=== PATIENT | male | born 1970 | race Caucasian/White ===

== ENCOUNTER 2018-02-11 08:00 | Emergency (ER) | payer OTHER ==
[2018-02-11 08:20] VITALS: BP 129/74
--- NOTE | 2018-02-11 08:49 | UC ---
Shoulder Pain HPI - HPI Summary HPI Summary: ABOUT 2 MONTHS OF RIGHT SHOULDER PAIN THAT OCCURS ONLY WITH CERTAIN MOVEMENTS. PATIENT HAS A RELATIVELY HIGH BED AND NO BEDSIDE TABLE SO REPEATEDLY REACHES TO THE FLOOR TO GET THINGS FROM THE FLOOR. HE DENIES ANY TRAUMA OR OTHER INJURY. NO SWELLING OR REDNESS OR RASH. NO CHEST PAIN OR SHORTNESS OF BREATH. NO PREVIOUS SHOULDER INJURY. - History of Current Complaint Chief Complaint: UCUpperExtremity Stated Complaint: SHOULD INJURY Time Seen by Provider: 02/11/18 08:21 Hx Obtained From: Patient Onset/Duration: Gradual Onset, Lasting Weeks, Still Present Severity Initially: Moderate Severity Currently: Moderate Location Of Pain: Is Discrete @ - RIGHT SHOULDER Pain Intensity: 7 Pain Scale Used: 0-10 Numeric Character: Sharp Aggravating Factor(s): Movement Alleviating Factor(s): Rest Associated Signs And Symptoms: Negative: Swelling, Redness, Weakness Related History: Dominant Hand Right - Allergies/Home Medications Allergies/Adverse Reactions: Allergies Allergy/AdvReac Type Severity Reaction Status Date / Time No Known Allergies Allergy Verified 02/11/18 08:20 Home Medications: Home Medications NK [No Home Medications Reported] 02/11/18 [History Confirmed 02/11/18] PMH/Surg Hx/FS Hx/Imm Hx Previously Healthy: Yes - Surgical History Surgical History: Yes Surgery Procedure, Year, and Place: testicular cyst removed 04/2013 - Family History Known Family History: Positive: Hypertension - Social History Alcohol Use: Rare Substance Use Type: None Smoking Status (MU): Never Smoked Tobacco Review of Systems Constitutional: Negative Skin: Negative Respiratory: Negative Cardiovascular: Negative Gastrointestinal: Negative Musculoskeletal: Arthralgia All Other Systems Reviewed And Are Negative: Yes Physical Exam Triage Information Reviewed: Yes Appearance: Well-Appearing, No Pain Distress, Well-Nourished Vital Signs: Initial Vital Signs Temp 97.7 F 02/11/18 08:12 Pulse 72 02/11/18 08:12 Resp 18 02/11/18 08:12 BP 129/74 02/11/18 08:12 Pulse Ox 99 02/11/18 08:12 Vital Signs Reviewed: Yes Eyes: Positive: Conjunctiva Clear ENT: Positive: Hearing grossly normal Neck: Positive: Supple Respiratory: Positive: No respiratory distress, No accessory muscle use Cardiovascular: Positive: Pulses Normal Abdomen Description: Positive: Soft Musculoskeletal: Positive: ROM Intact, No Edema, Other: - NO TENDERNESS, NEG CROSS ARM, MEI, EMPTY CAN, YERGASONS Neurological: Positive: Alert Psychological: Positive: Age Appropriate Behavior Skin: Negative: rashes Shoulder Course/Dx - Differential Dx/Diagnosis Provider Diagnoses: RIGHT SHOULDER STRAIN Discharge - Sign-Out/Discharge Documenting (check all that apply): Discharge/Admit/Transfer - Discharge Plan Condition: Stable Disposition: HOME Patient Education Materials: Shoulder Sprain (ED), Shoulder Pain (ED) Referrals: Roberth Mistry MD [Primary Care Provider] - If Needed Diego Arboleda MD [Medical Doctor] - If Needed Additional Instructions: GET A BED SIDE TABLE TO AVOID REACHING DOWN TO THE FLOOR. BE SURE TO GO THROUGH SLOW RANGE OF MOTION AND STRETCHING EXERCISES DAILY YOU ARE ABLE TO PREVENT STIFFENING UP AND MAKING THE DISCOMFORT WORSE. YOUR SYMPTOMS SHOULD IMPROVE SIGNIFICANTLY OVER THE NEXT FEW WEEKS. IF YOU DO NOT IMPROVE EXPECTED FOLLOW-UP WITH YOUR PCP OR ORTHO. YOU MAY BENEFIT FROM IMAGING AT THAT TIME. PHYSICAL THERAPY REFERRAL ALSO PROVIDED FOR YOU TO USE IF DESIRED. REST. OTC IBUPROFEN OR ALEVE NEEDED FOR DISCOMFORT. - Billing Disposition and Condition Condition: STABLE Disposition: Home
== END 2018-02-11 09:02 | disposition home or self-care (01) ==
LOC: UCEAST 08:00
DX: S46.911A Strain of unspecified muscle, fascia and tendon at shoulder and upper arm level, right arm, initial encounter (principal); X50.1XXA Overexertion from prolonged static or awkward postures, initial encounter; Y93.89 Activity, other specified; Y92.003 Bedroom of unspecified non-institutional (private) residence as the place of occurrence of the external cause; Z82.49 Family history of ischemic heart disease and other diseases of the circulatory system
CPT/HCPCS: 99212; G0463